=== PATIENT | male | born 1990 | race Caucasian/White ===

== ENCOUNTER 2016-10-26 18:21 | Emergency (ER) | payer OTHER ==
[~2016-10-26] VITALS: Ht 180.3 cm; Wt 81.5 kg
--- NOTE | 2016-10-26 20:40 | REPUSA ---
HISTORY: Thoracic trauma. CT T-SPINE with reformations: T1 through T12: Neural rings intact without fracture. Vertebral body heights normal, without compress ion fracture. Central canal: Patent without neural encroachment. IMPRESSION: Nontraumatic T-spine.
[2016-10-26] MEDS ORDERED: IBUP-1022 PO (20:48)
[2016-10-26 21:10] VITALS: BP 116/65
== END 2016-10-26 21:12 | disposition home or self-care (01) ==
LOC: M ED 18:59
DX: S20.229A Contusion of unspecified back wall of thorax, initial encounter (principal); W01.198A Fall on same level from slipping, tripping and stumbling with subsequent striking against other object, initial encounter; Y92.099 Unspecified place in other non-institutional residence as the place of occurrence of the external cause; Y93.01 Activity, walking, marching and hiking; Y99.9 Unspecified external cause status